=== PATIENT | female | born 1935 | race Caucasian/White ===

== ENCOUNTER 2018-06-07 14:38 | Inpatient (IN) ==
[2018-06-07 15:46] LABS: Basophils % 0.2 % (0.0-0.8); Hematocrit 38.6 VOL% (35.7-47.0); Hemoglobin 12.6 GM/DL (12.0-16.0); Immature Granulocytes % 0.5 %; Immature Granulocytes Absolute 0.05 #; Lymphocytes # 0.5 10*3/uL (1.4-4.0); Lymphocytes % 4.7 % (21.3-54.2); Mean Corpuscular HGB Conc 32.6 GM/DL (32-36); Mean Corpuscular Hemoglobin 28 PG (27-34); Mean Corpuscular Volume 86.4 FL (87-102); Mean Platelet Volume 10.6 FL (9.6-12.0); Monocytes # 0.6 10*3/uL (0.11-0.8); Monocytes % 5.7 % (1.7-12.7); Neutrophils # 9.5 10*3/uL (1.4-7.4); Neutrophils % 88.9 % (38.7-73.9); Platelet Count 210 T/CUMM (130-400); Red Blood Count 4.47 MC/CUMM (3.8-5.5); White Blood Count 10.7 T/CUMM (4-12)
[2018-06-07 16:07] LABS: Bilirubin,Total 1.6 MG/DL (0.2-1.0); Calcium 9.1 MG/DL (8.5-10.1); Osmolality,Calculated 260.1 MOS/KG (273-304); Potassium 3.4 MMOL/L (3.5-5.1); Thyroid Stimulating Hormone 2.56 uIU/ml (0.358-3.74); Total Protein 8.1 G/DL (6.4-8.3)
[2018-06-07] MEDS ORDERED: ONDANSETRON 4 MG/2 ML VIAL ONE (16:15)
[2018-06-07] MEDS ORDERED: ONDANSETRON 4 MG/2 ML VIAL IV STA (16:20)
[2018-06-07 16:43] LABS: Band Neutrophils 1 % (0-10); Lymphocytes 7 % (20-55); Platelet Estimate Normal; Segmented Neutrophils 91 % (50-85); Total Cells Counted 100
[2018-06-07] MEDS ORDERED: SODIUM CHLORIDE 0.9% 500 ML IV STA (17:49)
[2018-06-07] MEDS: SODIUM CHLORIDE 0.9% 1,000 ML IV SCH (19:00)
[2018-06-07] MEDS ORDERED: ONDANSETRON 4 MG/2 ML VIAL IV ONE (19:44)
[2018-06-07 20:01] LABS: Apearance,Urine CLEAR (Clear); Bilirubin,Urine Negative (Negative); Blood, Urine Negative (Negative); Glucose,Urine (UA) Negative (Negative); Ketones,Urine 5 mg/dL (Negative); Mucus,Urine Occasional /LPF (Occasional); Nitrite,Urine Negative (Negative); Protein,Urine Negative; RBC,Urine 1 /HPF (0-4); Squamous Epithelial Cell,Urine Occasional /HPF (0-10); Urine Color Yellow (Yellow); Urine Specific Gravity 1.006 (1.001-1.035); Urine Urobilinogen < 2.0 EU/DL (0.2-1.0); WBC,Urine 7 /HPF (0-6)
[2018-06-07] MEDS: ENOXAPARIN 40 MG/0.4 ML SYRINGE SUBCUT SCH (21:49)
[2018-06-08] MEDS: ONDANSETRON 4 MG/2 ML VIAL IV PRN ×2 (03:34→09:21)
[2018-06-08 04:49] LABS: Basophils % 0.3 % (0.0-0.8); Eosinophils % 0.4 % (0.00-10.9); Hematocrit 34.8 VOL% (35.7-47.0); Hemoglobin 11.3 GM/DL (12.0-16.0); Immature Granulocytes % 0.3 %; Immature Granulocytes Absolute 0.02 #; Lymphocytes # 1.1 10*3/uL (1.4-4.0); Lymphocytes % 14.8 % (21.3-54.2); Mean Corpuscular HGB Conc 32.5 GM/DL (32-36); Mean Corpuscular Hemoglobin 29 PG (27-34); Mean Corpuscular Volume 88.1 FL (87-102); Mean Platelet Volume 10.8 FL (9.6-12.0); Monocytes # 0.8 10*3/uL (0.11-0.8); Monocytes % 11.1 % (1.7-12.7); Neutrophils # 5.4 10*3/uL (1.4-7.4); Neutrophils % 73.1 % (38.7-73.9); Platelet Count 188 T/CUMM (130-400); Red Blood Count 3.95 MC/CUMM (3.8-5.5); White Blood Count 7.3 T/CUMM (4-12)
[2018-06-08] MEDS ORDERED: MORPHINE 4 MG/1 ML VIAL IV ONE (04:49)
[2018-06-08 05:05] LABS: PT Patient Result 10.7 SECS
[2018-06-08 05:08] LABS: Blood Urea Nitrogen 8 MG/DL (7-18); Calcium 8.6 MG/DL (8.5-10.1); Glucose 82 MG/DL (74-106); Osmolality,Calculated 266.1 MOS/KG (273-304); Potassium 3.8 MMOL/L (3.5-5.1); Sodium 135 MMOL/L (136-145); Troponin I < 0.015 NG/ML (0.00-0.045)
[2018-06-08 05:09] LABS: Risk Ratio 2.25
[2018-06-08] MEDS: SODIUM CHLORIDE 0.9% 1,000 ML IV SCH ×2 (06:23→17:05)
[2018-06-08] MEDS: LEVOTHYROXINE 88 MCG TABLET PO SCH (06:24)
[2018-06-08] MEDS: PANTOPRAZOLE 40 MG TABLET PO SCH (09:04)
[2018-06-08] MEDS ORDERED: PNEUMOCOCCAL VACCINE (13 VALENT) 0.5 ML SYRINGE IM ONE (20:13)
[2018-06-08] MEDS: ENOXAPARIN 40 MG/0.4 ML SYRINGE SUBCUT SCH (20:37)
[2018-06-08] MEDS ORDERED: LIDOCAINE 2% VISCOUS 100 ML BOTTLE SWISH/SPIT PRN (20:58)
[2018-06-09] MEDS: SODIUM CHLORIDE 0.9% 1,000 ML IV SCH ×2 (02:14→16:23)
[2018-06-09] MEDS: LEVOTHYROXINE 88 MCG TABLET PO SCH (06:40)
[2018-06-09] MEDS: PANTOPRAZOLE 40 MG TABLET PO SCH (08:41)
[2018-06-09] MEDS ORDERED: diphenhydrAMINE CAP 25 MG CAPSULE PO ONE (09:22)
[2018-06-09] MEDS: ONDANSETRON 4 MG/2 ML VIAL IV PRN (12:43)
[2018-06-09 15:53] VITALS: BP 168/74
[2018-06-09] MEDS ORDERED: levETIRAcetam 500 MG TABLET PO SCH (21:00)
== END 2018-06-09 17:40 | disposition home or self-care (01) | DRG 101 ==
LOC: EDBD → EDUNIT# → N.ED 14:38 → N.EDINP 18:03 → N.4E 19:17
PROVIDERS: ADMIT Internal Medicine; ATTEND Internal Medicine